=== PATIENT | female | born 1980 | race Caucasian/White ===

== ENCOUNTER 2024-10-23 06:58 | Emergency (ER) | payer BC ==
[~2024-10-23] VITALS: Ht 165.1 cm; Wt 68.0 kg
[2024-10-23 06:59] VITALS: O2SAT 95
[2024-10-23 07:29] LABS: HEMATOCRIT. 35.6 % (36.0-48.0); HEMOGLOBIN. 12.0 g/dL (12.0-16.0); MEAN PLATELET VOLUME 7.5 fl (7.4-10.4); PLATELET 234 x1000/uL (130-400); RED BLOOD CELL COUNT 4.04 mill/uL (4.2-5.4); RED CELL DISTRIBUTION WIDTH 13.6 % (11.6-14.6)
[2024-10-23 07:39] LABS: CREATININE 0.7 mg/dL (0.6-1.0); INR 0.9; UREA NITROGEN BLOOD 8 mg/dL (9-23)
[2024-10-23 07:41] LABS: ASPARTATE AMINOTRANSFERASE 12 IU/L (<34); BILIRUBIN DIRECT 0.8 mg/dL (<=3.0)
[2024-10-23 07:42] LABS: BILIRUBIN TOTAL 2.3 mg/dL (0.1-1.0); PROTEIN TOTAL 6.7 g/dL (6.0-8.3)
[2024-10-23] MEDS: LACTATED RINGERS 1,040 ML IV SCH (07:42)
[2024-10-23] MEDS: MORPHINE SULFATE 4 MG/ML INJ (FOR IV/IM USE) IV ONE (07:42)
[2024-10-23] MEDS: LACTATED RINGERS 1,000 ML IV SCH ×2 (07:42→10:18)
[2024-10-23] MEDS: ONDANSETRON HCL 4MG/2ML INJ IV ONE (07:42)
[2024-10-23] MEDS: PIPERACILLIN/TAZO 3.375G/50ML 50 ML IV STA (07:43)
[2024-10-23 07:55] LABS: HCG SCREEN NEGATIVE
[2024-10-23] MEDS: ACETAMINOPHEN 1000MG/100ML 100 ML IV ONE (07:56)
[2024-10-23] MEDS: POTASSIUM CHLORIDE 20MEQ/PACKET PO ONE (08:09)
[2024-10-23 09:38] VITALS: RESP 14; TEMP 36.8; O2SAT 99
[2024-10-23 10:16] LABS: CLARITY URINE CLEAR (CLEAR); COLOR URINE YELLOW (YELLOW); GLUCOSE URINE NEGATIVE (NEGATIVE); KETONES URINE NEGATIVE (NEGATIVE); LEUKOCYTE ESTERASE URINE 2+ (NEGATIVE); NITRITE URINE NEGATIVE (NEGATIVE); OCCULT BLOOD URINE TRACE (NEGATIVE); PH URINE 7.5 (4.5-8.0); PROTEIN URINE NEGATIVE (NEGATIVE); SPECIFIC GRAVITY URINE 1.004 (1.005-1.030); UROBILINOGEN URINE 0.2 E.U./dL (0.2-1.0)
[2024-10-23 10:29] LABS: SQUAMOUS EPITHELIAL CELL URINE FEW /lpf (RARE/1+)
[2024-10-23 10:30] LABS: RBC URINE 0-2 /hpf (0-2)
[2024-10-23 10:37] LABS: BACTERIA URINE 1+
[2024-10-23 11:01] VITALS: BP 92/55; PULSE 66
[2024-10-23] MEDS ORDERED: CEFP200T13 MT (11:03)
[2024-10-23 17:01] LABS: BAND% 6.0 % (1.0-6.0); LYMPHOCYTES % MANUAL 5.0 % (20.0-60.0); NEUTROPHILS % MANUAL 89.0 % (45.0-75.0)
[2024-10-23 17:02] LABS: PLATELET ESTIMATE NORMAL
== END 2024-10-23 11:24 | disposition home or self-care (01) ==
LOC: ER 06:58 → CMPBEDREQ 11:30
DX: R10.84 Generalized abdominal pain (principal); R11.2 Nausea with vomiting, unspecified; K76.9 Liver disease, unspecified; E87.6 Hypokalemia; Z79.899 Other long term (current) drug therapy
CPT/HCPCS: 99291; 74176; 96365; 96375; 96361; 80076; 80048; 81003; 84703; 83605; 83690; 85025; 85610; 87040; 87086; 87186; 87077; 36415; 84145; 71045; 96368; J2405; J2543; J2270; J0131